=== PATIENT | male | born 1945 | race Caucasian/White ===

== ENCOUNTER 2017-01-16 11:53 | Emergency (ER) | payer MEDICARE, OTHER ==
[~2017-01-16] VITALS: Ht 180.3 cm; Wt 95.0 kg
[~2017-01-16 11:53] MED LIST: ADACINJ3 IM; ALDA2525 PO; ASPI81CH3; ATOR40TA PO; BENA20 PO; CLOTCRE17 TOP; EPIP0.3I IM; FISH120014; KETO10 PO; METHO500 PO; METO50CR PO; NITR0.4S SL; SARA20TA
[2017-01-16 11:55] VITALS: BP 231/100; PULSE 51; RESP 15; TEMP 98.1; O2SAT 98
--- NOTE | 2017-01-16 12:12 | PD ---
HPI Chief Complaint: Neuro Symptoms/ Deficits Time Seen by Provider: 12:12 Travel History International Travel<30 days: No Contact w/Intl Traveler<30days: No Traveled to known affect area: No History of Present Illness HPI 71-year-old male presents to emergency department for evaluation of left arm weakness. Patient has been seeing Dr. Bruner neurosurgery for his neck and radicular symptoms. He states about 2 weeks ago she began having achiness left shoulder. 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 He states he is unable to lift his left extremity greater than shoulder height or reach behind him and this is acute since yesterday. He states he was unable to dry himself in the shower last night. He woke up in the middle the night with burning and numbness in his right arm. He states he felt like his right arm was not there. He states that he moved it around and began to come back feeling. But today his left upper extremity sensations and PFSH Past Medical History Cardiovascular Problems: Yes Social History Tobacco Use: No Allergies-Medications (Allergen,Severity, Reaction): Coded Allergies: Penicillin (Verified Allergy, Unknown, 01/16/17) Tetracycline (Verified Allergy, Unknown, 01/16/17) Uncoded Allergies: TERRAMYCIN EUGENIO (Allergy, Unknown, 03/20/16) Reported Meds & Prescriptions Reported Meds & Active Scripts Active Robaxin 500 Mg Tab (Methocarbamol) 500 Mg Tab 500 Mg PO TID PRN Toradol (Ketorolac Tromethamine) 10 Mg Tab 10 Mg PO Q8 PRN *DO NOT EXCEED 40 MG/DAY* *DURATION IS NOT TO EXCEED 5 DAYS* Reported Adacel (Diphtheria/Tetanus/Acell Pertussis) 0.5 Ml Inj 0.5 Ml IM ONCE Nitrostat (Nitroglycerin) 0.4 Mg Sub 0.4 Mg SL DIRECTED Metoprolol Succinate ER 50 mg (Metoprolol Succinate) 50 Mg Tab 50 Mg PO DAILY Aldactazide 25/25 mg Tab (HCTZ/Spironolactone) 1 Tab Tab 1 Tab PO DAILY Sarafem 20 mg (Fluoxetine 20 mg) 20 Mg Tab Fish Oil (Fulda-3 Fatty Acids) 1,200 Mg Cap Epipen 2-Robert (Epinephrine) 0.3 Mg Inj 0.3 Mg IM DIRECTED PRN If anaphylactic symptoms persist, dose may be repeated in 5-15 minutes Clotrimazole Anti-Fungal (Clotrimazole) Cre 1 Applic TOP TID APLLY TO: Lotensin 20 mg (Benazepril HCl) 20 Mg Tab 1 Tab PO DAILY Atorvastatin 40 mg (Atorvastatin Calcium) 40 Mg Tab 40 Mg PO DAILY Aspirin 81 Low Dose (Aspirin) 81 Mg Chw Review of Systems Except as stated in HPI: all other systems reviewed are Neg Physical Exam Narrative GENERAL: Well-nourished male patient, ambulatory no acute distress SKIN: Warm and dry. HEAD: Atraumatic. Normocephalic. EYES: Pupils equal and round. No scleral icterus. No injection or drainage. ENT: No nasal bleeding or discharge. Mucous membranes pink and moist. NECK: Trachea midline. No JVD. No cervical spine tenderness. CARDIOVASCULAR: Regular rate and rhythm. No murmur appreciated. RESPIRATORY: No accessory muscle use. Clear to auscultation. Breath sounds equal bilaterally. GASTROINTESTINAL: Abdomen soft, non-tender, nondistended. Hepatic and splenic margins not palpable. MUSCULOSKELETAL: No obvious deformities. No clubbing. No cyanosis. No edema. Patient reports pain with abduction of the left arm greater than 75. Simulation Tech strength is minimally decreased. Farris's sign is negative. Distal pulses are palpable. Cap refill is within normal limits. NEUROLOGICAL: Awake and alert. No obvious cranial nerve deficits. Motor grossly within normal limits. Normal speech. PSYCHIATRIC: Appropriate mood and affect; insight and judgment normal. Data Data Last Documented VS Vital Signs Date Time Temp Pulse Resp B/P Pulse Ox O2 Delivery O2 Flow Rate FiO2 01/16/17 11:55 98.1 51 15 231/100 98 Orders Mri C Spine W/O Contrast (01/16/17 ) Complete Blood Count With Diff (01/16/17 12:27) Basic Metabolic Panel (Bmp) (01/16/17 12:27) Coag Profile (01/16/17 12:27) Chest, Single Ap (01/16/17 ) Troponin I (01/16/17 12:40) Ckmb (Isoenzyme) Profile (01/16/17 12:40) Mri Brain W&W/O Contrast (01/16/17 ) Electrocardiogram (01/16/17 ) Shoulder, Complete (>2vws) (01/16/17 ) Tramadol (Ultram) (01/16/17 13:30) Labs Laboratory Tests Test 01/16/17 13:30 White Blood Count 10.3 TH/MM3 Red Blood Count 4.38 MIL/MM3 Hemoglobin 13.3 GM/DL Hematocrit 38.8 % Mean Corpuscular Volume 88.5 FL Mean Corpuscular Hemoglobin 30.3 PG Mean Corpuscular Hemoglobin 34.3 % Concent Red Cell Distribution Width 13.9 % Platelet Count 227 TH/MM3 Mean Platelet Volume 9.4 FL Neutrophils (%) (Auto) 62.1 % Lymphocytes (%) (Auto) 25.9 % Monocytes (%) (Auto) 7.8 % Eosinophils (%) (Auto) 3.2 % Basophils (%) (Auto) 1.0 % Neutrophils # (Auto) 6.4 TH/MM3 Lymphocytes # (Auto) 2.7 TH/MM3 Monocytes # (Auto) 0.8 TH/MM3 Eosinophils # (Auto) 0.3 TH/MM3 Basophils # (Auto) 0.1 TH/MM3 CBC Comment DIFF FINAL Differential Comment Prothrombin Time 11.0 SEC Prothromb Time International 1.0 RATIO Ratio Activated Partial 30.6 SEC Thromboplast Time MDM Medical Decision Making Medical Screen Exam Complete: Yes Emergency Medical Condition: Yes Medical Record Reviewed: Yes Differential Diagnosis Cervical radiculopathy versus musculoskeletal pain versus shoulder sprain versus ligamentous injury Narrative Course 71-year-old male presents to emergency department for evaluation. Workup was initiated in triage. Once a medical bed becomes available, patient will be transferred and care assumed by the provider. Condition: Stable Leah Marie Jan 16, 2017 12:12
[2017-01-16] MEDS ORDERED: traMADol HCL 50 MG TAB PO ONE (13:30)
--- NOTE | 2017-01-16 13:32 | RADRPT ---
EXAM DATE/TIME: 01/16/2017 12:39 [facility] COMPARISON: No previous studies available for comparison. INDICATIONS : Left arm numbness and high blood pressure. MEDICAL HISTORY : Hypertension. SURGICAL HISTORY : Cardiac stents. ENCOUNTER: Initial ACUITY: 1 day PAIN SCORE: 0/10 LOCATION: Bilateral chest FINDINGS: A single view of the chest demonstrates the lungs to be symmetrically aerated without evidence of mas s, infiltrate or effusion. The cardiomediastinal contours are unremarkable. Osseous structures are intact. Hemo clips in the right upper quadrant of the abdomen. CONCLUSION: No focal infiltrates seen. Eusebio Hill MD on January 16, 2017 at 13:24 Board Certified Radiologist. This report was verified electronically.
[2017-01-16 13:42] LABS: AUTOMATED NEUTROPHIL # 6.4 TH/MM3 (1.8-7.7); BASOPHIL # 0.1 TH/MM3 (0-0.2); EOSINOPHIL # 0.3 TH/MM3 (0-0.4); EOSINOPHIL % 3.2 % (0.0-4.0); HEMATOCRIT 38.8 % (39.0-51.0); HEMO FLAGS DIFF FINAL; LYMPH % 25.9 % (9.0-44.0); LYMPHOCYTE # 2.7 TH/MM3 (1.0-4.8); MEAN CELL VOLUME 88.5 FL (80.0-100.0); MEAN CORPUSCULAR HEMOGLOBIN 30.3 PG (27.0-34.0); MEAN CORPUSCULAR HGB CONC 34.3 % (32.0-36.0); MONO % 7.8 % (0.0-8.0); NEUT % 62.1 % (16.0-70.0); PLATELET COUNT 227 TH/MM3 (150-450); RED BLOOD COUNT 4.38 MIL/MM3 (4.50-5.90); RED CELL DISTRIBUTION WIDTH 13.9 % (11.6-17.2); WHITE BLOOD COUNT 10.3 TH/MM3 (4.0-11.0)
[2017-01-16 13:51] LABS: APTT (PATIENT) 30.6 SEC (24.3-30.1)
[2017-01-16 13:59] LABS: POTASSIUM 3.8 MEQ/L (3.5-5.1)
[2017-01-16 14:01] LABS: CREATINE KINASE 145 U/L (39-308)
[2017-01-16 14:13] LABS: CKMB 1.5 NG/ML (0.5-3.6)
--- NOTE | 2017-01-16 14:14 | RADRPT ---
EXAM DATE/TIME: 01/16/2017 13:54 [facility] COMPARISON: No previous studies available for comparison. INDICATIONS : Left shoulder pain x 1 week no known injury. MEDICAL HISTORY : Hypertension. SURGICAL HISTORY : Cardiac stents. ENCOUNTER: Initial ACUITY: 1 day PAIN SCORE: 4/10 LOCATION: Left Shoulder. FINDINGS: Multiple view examination of the left shoulder demonstrates no evidence of fracture or dislocation. The glenohumeral and acromioclavicular joints are maintained. There is normal range of motion betwee n internal and external rotation. Bony mineralization is normal. CONCLUSION: Unremarkable examination of the left shoulder. Eusebio Lopez Jr., MD on January 16, 2017 at 14:12 Board Certified Radiologist. This report was verified electronically.
[2017-01-16] MEDS ORDERED: LOTE20TA PO (15:18)
[2017-01-16] MEDS ORDERED: ASPI1TAB91 PO (15:18)
[2017-01-16] MEDS ORDERED: METO50TA11 PO (15:18)
[2017-01-16] MEDS ORDERED: NITR0.4S SL (15:18)
[2017-01-16] MEDS ORDERED: ALDA2525 PO (15:18)
[2017-01-16] MEDS ORDERED: LIPI40TA PO (15:18)
[2017-01-16] MEDS ORDERED: FISH1200 PO (15:18)
[2017-01-16] MEDS ORDERED: EPIN1INJ17 SQ (15:18)
[2017-01-16] MEDS ORDERED: PROZ20CA11 PO (15:18)
[2017-01-16 15:20] VITALS: BP 193/83; PULSE 58; RESP 16; O2SAT 99
--- NOTE | 2017-01-16 16:32 | RADRPT ---
EXAM DATE/TIME: 01/16/2017 15:43 [facility] COMPARISON: No previous studies available for comparison. INDICATIONS : Cervical stenosis. Left arm pain. MEDICAL HISTORY : Hypertension. SURGICAL HISTORY : Umbilical hernia repair. Cholecystectomy. Cataracts. Ear drum repair. ENCOUNTER: Subsequent ACUITY: 2 day PAIN SCORE: 3/10 LOCATION: neck. TECHNIQUE: Multiplanar, multisequence MRI examination of the cervical spine was performed. FINDINGS: VERTEBRAE: Degenerative marrow signal changes. ALIGNMENT: No evidence of subluxation. CORD: Normal configuration and signal. POST FOSSA: The cerebellar tonsils are normal in position. C2-C3: The thecal sac has a normal configuration. There is no evidence of disc herniation or spinal canal s tenosis. The neural foramina are patent bilaterally. C3-C4: Broad mild dorsal disc protrusion broadly eccentric to the left with mild indentation of the ventral thecal sac and mild asymmetric effacement of left lateral recess and neural foramen. C4-C5: Broad mild dorsal disc protrusion, broadly eccentric to the left with mild indentation of thecal sac and slight lateral recess stenosis. C5-C6: Broad undulating mild dorsal disc protrusion mildly indenting the thecal sac. Mild bilateral foramina l narrowing. C6-C7: Broad dorsal disc protrusion mildly indenting ventral thecal sac. Asymmetrically right-sided mild for aminal stenosis. C7-T1: The thecal sac has a normal configuration. There is no evidence of disc herniation or spinal canal s tenosis. The neural foramina are patent bilaterally. CONCLUSION: Multilevel broad disc protrusions producing mild multilevel canal and foraminal stenoses Alexis Treadwell MD on January 16, 2017 at 16:18 Board Certified Radiologist. This report was verified electronically.
[2017-01-16] MEDS ORDERED: GADODIAMIDE PF 287 MG/ML 20 ML VIAL (for RAD MRI) IV ONE (16:39)
[2017-01-16 16:44] VITALS: RESP 16
--- NOTE | 2017-01-16 16:49 | RADRPT ---
EXAM DATE/TIME: 01/16/2017 15:43 [facility] COMPARISON: No previous studies available for comparison. INDICATIONS : Hemiparesis. Left arm weakness. CONTRAST: 19 cc Omniscan (gadodiamide) IV MEDICAL HISTORY : Hypertension. SURGICAL HISTORY : Umbilical hernia repair. Cholecystectomy. Cataracts. Ear drum repair. ENCOUNTER: Subsequent ACUITY: 2 day PAIN SCORE: LOCATION: head. TECHNIQUE: Multiplanar, multisequence MRI of the brain was performed both prior to and following the administrat ion of paramagnetic contrast. FINDINGS: CEREBRUM: The ventricles are normal for age. No evidence of midline shift, mass lesion, hemorrhage or acute in farction. No extraaxial fluid collections are seen. The pituitary gland and suprasellar cistern are normal in configuration. WHITE MATTER: No significant signal abnormalities are seen in the white matter. POSTERIOR FOSSA: The cerebellum and brainstem are intact. The 4th ventricle is midline. The cerebellopontine angle is unremarkable. The cerebellar tonsils are normal in position. DIFFUSION IMAGING: No focal areas of restricted diffusion are seen. No evidence of acute infarction. EXTRACRANIAL: The visualized portions of the orbits and paranasal sinuses are unremarkable. POST-CONTRAST: No abnormal areas of parenchymal or dural enhancement. No evidence of blood-brain barrier breakdown. CONCLUSION: No acute intracranial findings Alexis Treadwell MD on January 16, 2017 at 16:31 Board Certified Radiologist. This report was verified electronically.
[2017-01-16] MEDS ORDERED: MEDR4PAK PO (17:01)
[2017-01-16] MEDS ORDERED: TRAM50TA PO (17:01)
--- NOTE | 2017-01-16 17:01 | PD ---
Data Data Last Documented VS Vital Signs Date Time Temp Pulse Resp B/P Pulse Ox O2 Delivery O2 Flow Rate FiO2 01/16/17 16:44 16 01/16/17 15:20 58 193/83 99 01/16/17 14:03 Room Air 01/16/17 11:55 98.1 Orders Mri C Spine W/O Contrast (01/16/17 ) Complete Blood Count With Diff (01/16/17 12:27) Basic Metabolic Panel (Bmp) (01/16/17 12:27) Coag Profile (01/16/17 12:27) Chest, Single Ap (01/16/17 ) Troponin I (01/16/17 12:40) Ckmb (Isoenzyme) Profile (01/16/17 12:40) Mri Brain W&W/O Contrast (01/16/17 ) Electrocardiogram (01/16/17 ) Shoulder, Complete (>2vws) (01/16/17 ) Tramadol (Ultram) (01/16/17 13:30) CKMB (01/16/17 13:30) CKMB% (01/16/17 13:30) Gadodiamide Pf Inj (Omniscan Pf Inj) (01/16/17 16:39) Labs Laboratory Tests Test 01/16/17 13:30 White Blood Count 10.3 TH/MM3 Red Blood Count 4.38 MIL/MM3 Hemoglobin 13.3 GM/DL Hematocrit 38.8 % Mean Corpuscular Volume 88.5 FL Mean Corpuscular Hemoglobin 30.3 PG Mean Corpuscular Hemoglobin 34.3 % Concent Red Cell Distribution Width 13.9 % Platelet Count 227 TH/MM3 Mean Platelet Volume 9.4 FL Neutrophils (%) (Auto) 62.1 % Lymphocytes (%) (Auto) 25.9 % Monocytes (%) (Auto) 7.8 % Eosinophils (%) (Auto) 3.2 % Basophils (%) (Auto) 1.0 % Neutrophils # (Auto) 6.4 TH/MM3 Lymphocytes # (Auto) 2.7 TH/MM3 Monocytes # (Auto) 0.8 TH/MM3 Eosinophils # (Auto) 0.3 TH/MM3 Basophils # (Auto) 0.1 TH/MM3 CBC Comment DIFF FINAL Differential Comment Prothrombin Time 11.0 SEC Prothromb Time International 1.0 RATIO Ratio Activated Partial 30.6 SEC Thromboplast Time Sodium Level 135 MEQ/L Potassium Level 3.8 MEQ/L Chloride Level 99 MEQ/L Carbon Dioxide Level 28.0 MEQ/L Anion Gap 8 MEQ/L Blood Urea Nitrogen 22 MG/DL Creatinine 1.55 MG/DL Estimat Glomerular Filtration 45 ML/MIN Rate Random Glucose 89 MG/DL Calcium Level 8.9 MG/DL Total Creatine Kinase 145 U/L Creatine Kinase MB 1.5 NG/ML Troponin I LESS THAN 0.02 NG/ML MDM Supervised Visit with SHARLENE: Yes Narrative Course I, Dr. Lyn, have reviewed the advance practice practitioner's documentation and am in agreement, met with the patient face to face, made the diagnosis, and the medical decision making was done by me. See her note for further details. Briefly this is a 71-year-old male who presents for evaluation of left shoulder pain, weakness in his left arm, and numbness sensation experience in his right arm last night. The patient reportedly has abnormal MRI of the cervical spine and is followed by neurosurgeon Dr. Bruner. He denies chest pain or dyspnea. Pain is worse with movement and palpation. On physical exam the patient has normal range of motion in bilateral upper extremities, however it is painful for him to abduct his left shoulder past 90. His produce manager strength seems slightly gang investigator in his left hand compared to his right hand, however bilateral produce manager strength is strong. There are no skin color changes. Normal sensation in bilateral upper extremities. Patient reports having a burning sensation over his left deltoid area for the last week. He denies chest pain or dyspnea. Bilateral distal radial pulses are brisk and equal. MRI brain: No acute injury cranial findings. MRI cervical spine: CONCLUSION: Multilevel broad disc protrusions producing mild multilevel canal and foraminal stenoses Chest x-ray shows no focal infiltrates. Left shoulder x-ray read as unremarkable exam. EKG shows sinus bradycardia with first-degree AV block, heart rate 49, left axis deviation, no acute ischemic abnormality. CBC is unremarkable. BMP is remarkable for BUN 22, creatinine 1.55, GFR 45, otherwise unremarkable. Cardiac enzymes are negative. Patient was made aware of all findings, and upon reassessment at 4:30 PM he is feeling improved. He has normal range of motion in his bilateral arms and normal produce manager strength bilaterally. Case discussed with on-call neurosurgeon Dr. Richmond who recommends conservative management at this point with Medrol Dosepak , pain medication, and follow-up as an outpatient. Patient was made aware of this plan. Patient's left shoulder pain is clearly musculoskeletal. His left shoulder is without warmth or erythema. I do not believe that there is an infectious process causing his pain. I also do not believe his pain is cardiac in nature. He was informed on when to return to the emergency department. He verbalizes understanding and agreement with plan. Diagnosis Primary Impression: Cervical disc disease Additional Impression: Left shoulder pain Qualified Code: M25.512 - Left shoulder pain, unspecified chronicity Referrals: Minor Bruner MD 3 days Additional Instruction: Follow-up with neurosurgeon Dr. Bruner this week. Return to the emergency department for worsening symptoms or any other concerns. Scripts Tramadol 50 Mg Tab50 Mg PO Q6H PRN (PAIN) #15 TAB Ref 0 Prov:Bautista Lyn MD 01/16/17 Methylprednisolone Dosepak (Medrol Dosepak)4 Mg Dspk4 Mg PO DIRECTED #1 DSPK Ref 0 Per Pharmacist direction Prov:Bautista Lyn MD 01/16/17 Disposition: 01 DISCHARGE HOME Condition: Stable Bautista Lyn MD Jan 16, 2017 17:01
--- NOTE | 2017-01-17 17:23 | EKG ---
Date Performed: 01/16/2017 Time Performed: 13:26:39 PTAGE: 71 years EKG: SINUS BRADYCARDIA WITH FIRST DEGREE AV BLOCK BORDERLINE LEFT AXIS DEVIATION VOLTAGE CRITERI A FOR LVH ABNORMAL ECG NO PREVIOUS TRACING DOCTOR: Bridget Peña Interpretating Date/Time 01/17/2017 17:17:06
== END 2017-01-16 17:43 | disposition home or self-care (01) ==
LOC: NEPA 11:53
DX: M25.512 Pain in left shoulder (principal); R00.1 Bradycardia, unspecified; I44.0 Atrioventricular block, first degree
CPT/HCPCS: 70553; 71010; 72141; 73030; 80048; 82550; 82552; 84484; 85025; 85610; 85730; 93005; 99285; A9579